=== PATIENT | male | born 1945 | race African-American/Black ===

== ENCOUNTER → 2017-01-16 | Outpatient (CLI) | payer MEDICARE ==
[2014-02-12 16:25] VITALS: BP 125/74
[~2017-01-16] MED LIST: AMLO5TAB2 PO; CALC500T27 PO; CHOL10002 PO; FERR325C PO; INSU100C SQ; MULT-18 PO; MYCO180T PO; MYCO250C PO; PANT40TA3 PO; PRAV20TA2 PO
--- NOTE | 2017-01-16 12:27 | KCIC ---
PROCEDURE Renal ultrasound dated 01/16/2017. HISTORY Chronic kidney disease. TECHNIQUE Routine sonographic imaging performed. COMPARISON None. FINDINGS Both kidneys are echogenic. The right kidney measures 9.9 centimeter in length. Left kidney measures 13.9 centimeter in length. Simple appearing cysts at both kidneys measuring up to 6.8 centimeter on the left and 4.1 centimeter on the right. No solid mass or abnormal shadowing. No hydronephrosis. The gallbladder is distended and there Nuris shadowing stones. No wall thickening or pericholecystic fluid. Prostate gland is enlarged. Urinary bladder is nondistended and not well evaluated. IMPRESSION - No acute sonographic abnormality. - Bilateral renal cysts. - Cholelithiasis. - Prostatomegaly. Electronically signed by: Ti Sanches (Jan 16, 2017 12:25:46)
== END | disposition home or self-care (01) ==
LOC: KCIC US 10:12
PROVIDERS: ATTEND Internal Medicine Nephrology
DX: I12.9 Hypertensive chronic kidney disease with stage 1 through stage 4 chronic kidney disease, or unspecified chronic kidney disease (principal); N18.3 Chronic kidney disease, stage 3 (moderate); N28.1 Cyst of kidney, acquired; K80.20 Calculus of gallbladder without cholecystitis without obstruction; N40.0 Benign prostatic hyperplasia without lower urinary tract symptoms
CPT/HCPCS: 76770

== ENCOUNTER → 2017-03-03 | Outpatient (CLI) | payer MEDICARE ==
[2014-02-12 16:25] VITALS: BP 125/74
[2017-03-03 09:53] LABS: BASO % 0 % (0-3); BILIRUBIN,URINE NEGATIVE (NEG); EOS % 1 % (0-3); GLUCOSE,URINE NEGATIVE (NEG); HEMOGLOBIN 13.7 g/dL (13.0-17.5); LYMPH % 15 % (24-48); MEAN CORPUSCULAR HEMOGLOBIN 31 pg (25-35); MEAN CORPUSCULAR HGB CONC 33 g/dL (31-37); MEAN CORPUSCULAR VOLUME 93 fL (79-100); MONO % 5 % (0-9); NEUT % 79 % (31-73); NITRITE,URINE NEGATIVE (NEG); PH,URINE 5.5; PLATELET COUNT 130 x10^3/uL (140-400); PROTEIN,URINE NEGATIVE (NEG-TRACE); RED BLOOD COUNT 4.41 x10^6/uL (4.30-5.70); RED CELL DISTRIBUTION WIDTH 14.6 % (11.5-14.5); UROBILINOGEN,URINE 0.2 mg/dL (0.2 mg/dL)
[2017-03-03 09:54] LABS: WHITE BLOOD COUNT 6.6 x10^3/uL (4.0-11.0)
[2017-03-03 10:05] LABS: ALBUMIN 4.6 g/dL (3.4-5.0); BACTERIA,URINE 0 /HPF (0-FEW); CALCIUM 9.5 mg/dL (8.5-10.1); CREATININE 1.8 mg/dL (0.7-1.3); GFR 45.5; PHOSPHORUS 3.4 mg/dL (2.6-4.7); POTASSIUM 4.5 mmol/L (3.5-5.1); RBC,URINE 0 /HPF (0-2); SQUAMOUS EPITHELIAL CELL,UR OCC /LPF
[2017-03-03 18:16] LABS: UR PROTEIN RD 19.8 mg/dL (Not Estab.)
[2017-03-04 07:28] LABS: PTH INTACT 33 pg/mL (15-65)
== END | disposition home or self-care (01) ==
LOC: LAB 09:04
PROVIDERS: ATTEND Internal Medicine Nephrology
DX: N18.3 Chronic kidney disease, stage 3 (moderate) (principal)
CPT/HCPCS: 36415; 80069; 81001; 82570; 83970; 84156; 85027

== ENCOUNTER → 2017-04-10 | Outpatient (CLI) | payer MEDICARE ==
[2014-02-12 16:25] VITALS: BP 125/74
[~2017-04-10] MED LIST changes: -CALC500T27 PO; +CALC500T30 PO
[2017-04-10 08:20] LABS: BASO % 0 % (0-3); EOS % 1 % (0-3); HEMATOCRIT 39.5 % (39.0-53.0); HEMOGLOBIN 13.2 g/dL (13.0-17.5); LYMPH # 1.6 x10^3/uL (1.0-4.8); LYMPH % 26 % (24-48); MEAN CORPUSCULAR HEMOGLOBIN 31 pg (25-35); MEAN CORPUSCULAR HGB CONC 34 g/dL (31-37); MEAN CORPUSCULAR VOLUME 92 fL (79-100); MONO % 8 % (0-9); NEUT % 65 % (31-73); PLATELET COUNT 132 x10^3/uL (140-400); RED BLOOD COUNT 4.28 x10^6/uL (4.30-5.70); RED CELL DISTRIBUTION WIDTH 14.7 % (11.5-14.5); WHITE BLOOD COUNT 6.2 x10^3/uL (4.0-11.0)
[2017-04-10 08:47] LABS: CALCIUM 8.9 mg/dL (8.5-10.1); GFR 40.2; MAGNESIUM 1.9 mg/dL (1.8-2.4); POTASSIUM 4.6 mmol/L (3.5-5.1)
== END | disposition home or self-care (01) ==
LOC: LAB 07:47
PROVIDERS: ATTEND Internal Medicine Cardiovascular Disease
DX: E78.5 Hyperlipidemia, unspecified (principal); D89.9 Disorder involving the immune mechanism, unspecified; Z94.1 Heart transplant status
CPT/HCPCS: 80048; 82465; 83735; 84478; 85027

== ENCOUNTER → 2017-09-11 | Outpatient (CLI) | payer MEDICARE ==
[2014-02-12 16:25] VITALS: BP 125/74
[2017-09-11 09:07] LABS: BASO % 1 % (0-3); EOS % 2 % (0-3); HEMATOCRIT 40.7 % (39.0-53.0); HEMOGLOBIN 13.3 g/dL (13.0-17.5); LYMPH # 1.5 x10^3/uL (1.0-4.8); LYMPH % 25 % (24-48); MEAN CORPUSCULAR HEMOGLOBIN 31 pg (25-35); MEAN CORPUSCULAR HGB CONC 33 g/dL (31-37); MEAN CORPUSCULAR VOLUME 94 fL (79-100); MONO % 9 % (0-9); NEUT % 64 % (31-73); PLATELET COUNT 185 x10^3/uL (140-400); RED BLOOD COUNT 4.35 x10^6/uL (4.30-5.70); RED CELL DISTRIBUTION WIDTH 14.3 % (11.5-14.5); WHITE BLOOD COUNT 6.3 x10^3/uL (4.0-11.0)
[2017-09-11 09:23] LABS: CREATININE 1.9 mg/dL (0.7-1.3); GFR 42.6; MAGNESIUM 1.8 mg/dL (1.8-2.4)
== END | disposition home or self-care (01) ==
LOC: LAB 08:46
PROVIDERS: ATTEND Internal Medicine Cardiovascular Disease
DX: Z48.21 Encounter for aftercare following heart transplant (principal); D89.9 Disorder involving the immune mechanism, unspecified; E78.2 Mixed hyperlipidemia
CPT/HCPCS: 36415; 80048; 80197; 82465; 83735; 84478; 85025

== ENCOUNTER → 2017-11-16 | Outpatient (CLI) | payer BC ==
[2017-11-16 09:03] LABS: ADD MAN DIFF? NO
[2017-11-16 09:19] LABS: BASO % 1 % (0-3); EOS # 0.1 x10^3/uL (0.0-0.7); EOS % 2 % (0-3); HEMATOCRIT 39.5 % (39.0-53.0); LYMPH % 22 % (24-48); MEAN CORPUSCULAR HEMOGLOBIN 30 pg (25-35); MEAN CORPUSCULAR HGB CONC 33 g/dL (31-37); MEAN CORPUSCULAR VOLUME 93 fL (79-100); MONO # 0.6 x10^3/uL (0.0-1.1); MONO % 13 % (0-9); NEUT # 2.9 x10^3uL (1.8-7.7); NEUT % 62 % (31-73); PLATELET COUNT 133 x10^3/uL (140-400); RED BLOOD COUNT 4.26 x10^6/uL (4.30-5.70); RED CELL DISTRIBUTION WIDTH 14.3 % (11.5-14.5); WHITE BLOOD COUNT 4.7 x10^3/uL (4.0-11.0)
[2017-11-16 09:27] LABS: ALBUMIN 4.3 g/dL (3.4-5.0); ANION GAP 10 (6-14); BLOOD UREA NITROGEN 24 mg/dL (8-26); CALCIUM 9.2 mg/dL (8.5-10.1); CARBON DIOXIDE 28 mmol/L (21-32); CHLORIDE 102 mmol/L (98-107); GFR 40.2; GLUCOSE 158 mg/dL (70-99); PHOSPHORUS 3.3 mg/dL (2.6-4.7); POTASSIUM 4.2 mmol/L (3.5-5.1); SODIUM 140 mmol/L (136-145)
[2017-11-16 09:52] LABS: BILIRUBIN,URINE NEGATIVE (NEG); CLARITY,URINE CLEAR; COLOR,URINE YELLOW; GLUCOSE,URINE NEGATIVE (NEG); NITRITE,URINE NEGATIVE (NEG); PH,URINE 5.5; PROTEIN,URINE 30 mg/dL (NEG-TRACE); UROBILINOGEN,URINE 0.2 mg/dL (0.2 mg/dL)
[2017-11-16 10:06] LABS: BACTERIA,URINE 0 /HPF (0-FEW); RBC,URINE 0 /HPF (0-2); SQUAMOUS EPITHELIAL CELL,UR FEW /LPF; WBC,URINE 0 /HPF (0-4)
[2017-11-16 19:18] LABS: TOTAL PROTEIN CREATININE RATIO 232 mg/g creat (0-200); UR CREATININE RD 253.3 mg/dL (Not Estab.); UR PROTEIN RD 58.7 mg/dL (Not Estab.)
[2017-11-17 15:26] LABS: CALCIUM PTH 9.6 mg/dL (8.6-10.2); CREATININE PTH 1.86 mg/dL (0.76-1.27); PHOSPHORUS PTH 3.2 mg/dL (2.5-4.5); PTH INTACT 46 pg/mL (15-65); eGFR AFRICAN-AMER 41 (>59); eGFR NON AFRICAN-AMER 36 (>59)
== END | disposition home or self-care (01) ==
LOC: LAB 08:49
DX: N18.3 Chronic kidney disease, stage 3 (moderate) (principal)
CPT/HCPCS: 36415; 80069; 81001; 82570; 83970; 84156; 85025

== ENCOUNTER → 2017-11-22 | Outpatient (CLI) | payer BC ==
[2017-11-22 08:01] LABS: ADD MAN DIFF? NO
[2017-11-22 08:19] LABS: BASO % 0 % (0-3); EOS # 0.1 x10^3/uL (0.0-0.7); EOS % 2 % (0-3); HEMATOCRIT 39.1 % (39.0-53.0); LYMPH # 1.8 x10^3/uL (1.0-4.8); LYMPH % 30 % (24-48); MEAN CORPUSCULAR HEMOGLOBIN 31 pg (25-35); MEAN CORPUSCULAR HGB CONC 33 g/dL (31-37); MEAN CORPUSCULAR VOLUME 93 fL (79-100); MONO # 0.5 x10^3/uL (0.0-1.1); MONO % 8 % (0-9); NEUT # 3.6 x10^3uL (1.8-7.7); NEUT % 60 % (31-73); PLATELET COUNT 173 x10^3/uL (140-400); RED BLOOD COUNT 4.22 x10^6/uL (4.30-5.70)
[2017-11-23 11:55] LABS: PROGRAF LEVEL SEE SEPARATE REPORT
== END | disposition home or self-care (01) ==
LOC: LAB 07:49
DX: Z48.21 Encounter for aftercare following heart transplant (principal)
CPT/HCPCS: 36415; 80197; 85025

== ENCOUNTER → 2017-12-29 | Outpatient (CLI) | payer BC ==
[2017-12-29 08:32] LABS: ANION GAP 10 (6-14); BLOOD UREA NITROGEN 21 mg/dL (8-26); CALCIUM 9.1 mg/dL (8.5-10.1); CARBON DIOXIDE 26 mmol/L (21-32); CHLORIDE 107 mmol/L (98-107); CREATININE 1.9 mg/dL (0.7-1.3); GFR 42.6; GLUCOSE 127 mg/dL (70-99); POTASSIUM 4.2 mmol/L (3.5-5.1); SODIUM 143 mmol/L (136-145)
== END | disposition home or self-care (01) ==
LOC: LAB 08:07
DX: I12.9 Hypertensive chronic kidney disease with stage 1 through stage 4 chronic kidney disease, or unspecified chronic kidney disease (principal); N18.3 Chronic kidney disease, stage 3 (moderate); Z94.1 Heart transplant status
CPT/HCPCS: 36415; 80048

== ENCOUNTER → 2018-02-16 | Outpatient (CLI) | payer BC ==
[2018-02-16 09:24] LABS: GFR 40.2
[2018-02-19 07:01] LABS: PROGRAF LEVEL SEE SEPARATE REPORT
== END | disposition home or self-care (01) ==
LOC: LAB 08:46
DX: Z48.21 Encounter for aftercare following heart transplant (principal)
CPT/HCPCS: 36415; 80197; 82565

== ENCOUNTER → 2018-07-05 | Outpatient (CLI) | payer BC ==
[2014-02-12 16:25] VITALS: BP 125/74
[~2018-07-05] MED LIST changes: -AMLO5TAB2 PO; +AMLO5TAB7 PO
[2018-07-05 09:54] LABS: CREATININE 1.8 mg/dL (0.7-1.3); GFR 45.2
== END | disposition home or self-care (01) ==
LOC: LAB 09:04
PROVIDERS: ATTEND Internal Medicine Cardiovascular Disease
DX: Z48.21 Encounter for aftercare following heart transplant (principal); E11.22 Type 2 diabetes mellitus with diabetic chronic kidney disease; I12.9 Hypertensive chronic kidney disease with stage 1 through stage 4 chronic kidney disease, or unspecified chronic kidney disease; N18.3 Chronic kidney disease, stage 3 (moderate); E78.2 Mixed hyperlipidemia; Z79.4 Long term (current) use of insulin
CPT/HCPCS: 36415; 80197; 82565

== ENCOUNTER → 2018-09-19 | Outpatient (CLI) | payer BC ==
[2014-02-12 16:25] VITALS: BP 125/74
[2018-09-19 09:44] LABS: BASO % 1 % (0-3); EOS # 0.1 x10^3/uL (0.0-0.7); EOS % 3 % (0-3); HEMATOCRIT 39.9 % (39.0-53.0); HEMOGLOBIN 13.3 g/dL (13.0-17.5); LYMPH # 1.3 x10^3/uL (1.0-4.8); LYMPH % 25 % (24-48); MEAN CORPUSCULAR HEMOGLOBIN 32 pg (25-35); MEAN CORPUSCULAR HGB CONC 33 g/dL (31-37); MEAN CORPUSCULAR VOLUME 94 fL (79-100); MONO # 0.5 x10^3/uL (0.0-1.1); MONO % 9 % (0-9); NEUT # 3.4 x10^3uL (1.8-7.7); NEUT % 63 % (31-73); PLATELET COUNT 137 x10^3/uL (140-400); RED BLOOD COUNT 4.22 x10^6/uL (4.30-5.70); RED CELL DISTRIBUTION WIDTH 14.6 % (11.5-14.5); WHITE BLOOD COUNT 5.4 x10^3/uL (4.0-11.0)
[2018-09-19 10:06] LABS: CREATININE 2.1 mg/dL (0.7-1.3); GFR 37.9; MAGNESIUM 1.9 mg/dL (1.8-2.4)
== END | disposition home or self-care (01) ==
LOC: LAB 09:13
PROVIDERS: ATTEND Internal Medicine Cardiovascular Disease
DX: Z48.21 Encounter for aftercare following heart transplant (principal); E78.2 Mixed hyperlipidemia; D89.9 Disorder involving the immune mechanism, unspecified; Z94.1 Heart transplant status; Z79.899 Other long term (current) drug therapy; Z92.241 Personal history of systemic steroid therapy
CPT/HCPCS: 36415; 80048; 82465; 83735; 84478; 85025

== ENCOUNTER → 2019-01-22 | Outpatient (CLI) | payer BC ==
[2014-02-12 16:25] VITALS: BP 125/74
[~2019-01-22] MED LIST changes: +AMLO5TAB10 PO; -AMLO5TAB7 PO
[2019-01-22 11:06] LABS: CREATININE 2.1 mg/dL (0.7-1.3); GFR 37.9
== END | disposition home or self-care (01) ==
LOC: LAB 10:19
PROVIDERS: ATTEND Internal Medicine
DX: Z48.21 Encounter for aftercare following heart transplant (principal)
CPT/HCPCS: 36415; 80197; 82565

== ENCOUNTER → 2019-02-11 | Outpatient (CLI) | payer BC ==
[2014-02-12 16:25] VITALS: BP 125/74
[2019-02-11 10:04] LABS: CALCIUM 9.2 mg/dL (8.5-10.1); GFR 40.1; MAGNESIUM 1.8 mg/dL (1.8-2.4); POTASSIUM 4.3 mmol/L (3.5-5.1)
== END | disposition home or self-care (01) ==
LOC: LAB 09:03
PROVIDERS: ATTEND Internal Medicine Cardiovascular Disease
DX: E87.5 Hyperkalemia (principal)
CPT/HCPCS: 36415; 80048; 83735

== ENCOUNTER → 2019-02-12 | Outpatient (CLI) | payer BC ==
[2014-02-12 16:25] VITALS: BP 125/74
== END | disposition home or self-care (01) ==
LOC: LAB 09:47
PROVIDERS: ATTEND Internal Medicine
DX: Z48.21 Encounter for aftercare following heart transplant (principal)
CPT/HCPCS: 36415; 80197

== ENCOUNTER → 2019-02-25 | Outpatient (CLI) | payer BC ==
[2014-02-12 16:25] VITALS: BP 125/74
[2019-02-25 08:59] LABS: CREATININE 1.8 mg/dL (0.7-1.3); GFR 45.2
== END | disposition home or self-care (01) ==
LOC: LAB 08:17
PROVIDERS: ATTEND Internal Medicine Cardiovascular Disease
DX: Z48.21 Encounter for aftercare following heart transplant (principal)
CPT/HCPCS: 36415; 80197; 82565

== ENCOUNTER → 2019-03-25 | Outpatient (CLI) | payer BC ==
[2014-02-12 16:25] VITALS: BP 125/74
[2019-03-25 09:43] LABS: BASO % 0 % (0-3); EOS # 0.2 x10^3/uL (0.0-0.7); EOS % 3 % (0-3); HEMATOCRIT 42.4 % (39.0-53.0); HEMOGLOBIN 14.3 g/dL (13.0-17.5); LYMPH # 1.6 x10^3/uL (1.0-4.8); LYMPH % 27 % (24-48); MEAN CORPUSCULAR HEMOGLOBIN 32 pg (25-35); MEAN CORPUSCULAR HGB CONC 34 g/dL (31-37); MEAN CORPUSCULAR VOLUME 95 fL (79-100); MONO # 0.4 x10^3/uL (0.0-1.1); MONO % 7 % (0-9); NEUT # 3.8 x10^3uL (1.8-7.7); NEUT % 63 % (31-73); PLATELET COUNT 141 x10^3/uL (140-400); RED BLOOD COUNT 4.47 x10^6/uL (4.30-5.70); RED CELL DISTRIBUTION WIDTH 14.1 % (11.5-14.5); WHITE BLOOD COUNT 6.1 x10^3/uL (4.0-11.0)
[2019-03-25 10:18] LABS: ALBUMIN 4.2 g/dL (3.4-5.0); ALBUMIN/GLOBULIN RATIO 1.1 (1.0-1.7); CALCIUM 9.5 mg/dL (8.5-10.1); CREATININE 1.8 mg/dL (0.7-1.3); GFR 45.1; MAGNESIUM 1.8 mg/dL (1.8-2.4); POTASSIUM 4.5 mmol/L (3.5-5.1); TOTAL BILIRUBIN 0.7 mg/dL (0.2-1.0)
== END | disposition home or self-care (01) ==
LOC: LAB 09:06
PROVIDERS: ATTEND Internal Medicine Cardiovascular Disease
DX: Z48.21 Encounter for aftercare following heart transplant (principal); E78.2 Mixed hyperlipidemia; D89.9 Disorder involving the immune mechanism, unspecified; Z79.899 Other long term (current) drug therapy; Z94.1 Heart transplant status; Z92.241 Personal history of systemic steroid therapy
CPT/HCPCS: 36415; 80053; 80197; 83735; 85025

== ENCOUNTER → 2019-04-15 | Outpatient (CLI) | payer BC ==
[2014-02-12 16:25] VITALS: BP 125/74
[~2019-04-15] MED LIST changes: -PANT40TA3 PO; +PANT40TA77 PO
[2019-04-15 08:39] LABS: CALCIUM 9.1 mg/dL (8.5-10.1); CREATININE 1.9 mg/dL (0.7-1.3); GFR 42.4; POTASSIUM 4.3 mmol/L (3.5-5.1)
== END | disposition home or self-care (01) ==
LOC: LAB 08:04
PROVIDERS: ATTEND Internal Medicine
DX: E11.9 Type 2 diabetes mellitus without complications (principal); Z94.1 Heart transplant status
CPT/HCPCS: 36415; 80048

== ENCOUNTER → 2019-07-10 | Outpatient (CLI) | payer BC ==
[2014-02-12 16:25] VITALS: BP 125/74
== END | disposition home or self-care (01) ==
LOC: LAB 10:52
PROVIDERS: ATTEND Urology
DX: C61 Malignant neoplasm of prostate (principal)
CPT/HCPCS: 36415; G0103

== ENCOUNTER → 2019-09-23 | Outpatient (CLI) | payer BC ==
[2014-02-12 16:25] VITALS: BP 125/74
[2019-09-23 09:48] LABS: BASO % 0 % (0-3); EOS # 0.2 x10^3/uL (0.0-0.7); EOS % 2 % (0-3); HEMATOCRIT 34.2 % (39.0-53.0); HEMOGLOBIN 11.4 g/dL (13.0-17.5); LYMPH # 1.5 x10^3/uL (1.0-4.8); LYMPH % 19 % (24-48); MEAN CORPUSCULAR HEMOGLOBIN 32 pg (25-35); MEAN CORPUSCULAR HGB CONC 33 g/dL (31-37); MEAN CORPUSCULAR VOLUME 96 fL (79-100); MONO # 0.6 x10^3/uL (0.0-1.1); MONO % 7 % (0-9); NEUT # 5.6 x10^3/uL (1.8-7.7); NEUT % 71 % (31-73); PLATELET COUNT 164 x10^3/uL (140-400); RED BLOOD COUNT 3.58 x10^6/uL (4.30-5.70); RED CELL DISTRIBUTION WIDTH 14.1 % (11.5-14.5); WHITE BLOOD COUNT 7.9 x10^3/uL (4.0-11.0)
[2019-09-23 10:13] LABS: ALBUMIN 3.8 g/dL (3.4-5.0); ALBUMIN/GLOBULIN RATIO 0.9 (1.0-1.7); CALCIUM 9.1 mg/dL (8.5-10.1); CREATININE 1.9 mg/dL (0.7-1.3); GFR 42.4; MAGNESIUM 1.7 mg/dL (1.8-2.4); POTASSIUM 4.3 mmol/L (3.5-5.1); TOTAL BILIRUBIN 0.4 mg/dL (0.2-1.0)
[2019-09-24 00:07] LABS: HEMOGLOBIN A1C 7.2 % (4.8-5.6)
== END | disposition home or self-care (01) ==
LOC: LAB 09:09
PROVIDERS: ATTEND Internal Medicine Cardiovascular Disease
DX: Z48.21 Encounter for aftercare following heart transplant (principal); D89.9 Disorder involving the immune mechanism, unspecified; E11.9 Type 2 diabetes mellitus without complications; Z79.899 Other long term (current) drug therapy
CPT/HCPCS: 36415; 80053; 80197; 83036; 83735; 85025

== ENCOUNTER → 2020-07-09 | Outpatient (CLI) | payer BC ==
[2014-02-12 16:25] VITALS: BP 125/74
[2020-07-09 16:44] LABS: BASO % 0 % (0-3); EOS # 0.1 x10^3/uL (0.0-0.7); EOS % 2 % (0-3); HEMATOCRIT 35.8 % (39.0-53.0); HEMOGLOBIN 12.3 g/dL (13.0-17.5); LYMPH % 18 % (24-48); MEAN CORPUSCULAR HEMOGLOBIN 33 pg (25-35); MEAN CORPUSCULAR HGB CONC 34 g/dL (31-37); MEAN CORPUSCULAR VOLUME 97 fL (79-100); MONO # 0.4 x10^3/uL (0.0-1.1); MONO % 6 % (0-9); NEUT # 4.4 x10^3/uL (1.8-7.7); NEUT % 74 % (31-73); PLATELET COUNT 138 x10^3/uL (140-400); RED BLOOD COUNT 3.71 x10^6/uL (4.30-5.70); RED CELL DISTRIBUTION WIDTH 13.7 % (11.5-14.5)
== END | disposition home or self-care (01) ==
LOC: LAB 16:05
PROVIDERS: ATTEND Internal Medicine Cardiovascular Disease
DX: Z48.21 Encounter for aftercare following heart transplant (principal); E78.2 Mixed hyperlipidemia; D89.9 Disorder involving the immune mechanism, unspecified; Z79.899 Other long term (current) drug therapy
CPT/HCPCS: 36415; 80197; 85025

== ENCOUNTER → 2020-10-05 | Outpatient (CLI) | payer BC ==
[2014-02-12 16:25] VITALS: BP 125/74
[~2020-10-05] MED LIST changes: +AMLO-186 PO; -AMLO5TAB10 PO
[2020-10-05 10:32] LABS: FREE T4 0.79 ng/dL (0.76-1.46)
[2020-10-06 15:22] LABS: THYROID STIM HORMONE (TSH) 2.691 uIU/mL (0.358-3.74)
== END ==
LOC: LAB 08:37
PROVIDERS: ATTEND Internal Medicine Cardiovascular Disease
DX: E07.9 Disorder of thyroid, unspecified (principal); Z94.1 Heart transplant status
CPT/HCPCS: 36415; 82550; 82728; 83540; 83735; 84439; 84443

== ENCOUNTER → 2020-10-05 | Outpatient (CLI) | payer BC ==
[2014-02-12 16:25] VITALS: BP 125/74
[2020-10-05 10:35] LABS: FREE T4 0.79 ng/dL (0.76-1.46); THYROID STIM HORMONE (TSH) 2.668 uIU/mL (0.358-3.74)
== END ==
LOC: LAB 08:52
DX: E04.2 Nontoxic multinodular goiter (principal); E07.9 Disorder of thyroid, unspecified
CPT/HCPCS: 36415; 84439; 84443

== ENCOUNTER → 2021-02-17 | Outpatient (CLI) | payer BC ==
[2014-02-12 16:25] VITALS: BP 125/74
== END ==
LOC: LAB 08:43
DX: Z12.5 Encounter for screening for malignant neoplasm of prostate (principal); R97.20 Elevated prostate specific antigen [PSA]
CPT/HCPCS: 36415; G0103

== ENCOUNTER → 2021-04-14 | Outpatient (CLI) | payer BC ==
[2014-02-12 16:25] VITALS: BP 125/74
[2021-04-14 09:16] LABS: BASO % 0 % (0-3); EOS # 0.3 x10^3/uL (0.0-0.7); EOS % 5 % (0-3); HEMATOCRIT 37.3 % (39.0-53.0); HEMOGLOBIN 12.6 g/dL (13.0-17.5); LYMPH # 1.3 x10^3/uL (1.0-4.8); LYMPH % 26 % (24-48); MEAN CORPUSCULAR HEMOGLOBIN 33 pg (25-35); MEAN CORPUSCULAR HGB CONC 34 g/dL (31-37); MEAN CORPUSCULAR VOLUME 96 fL (79-100); MONO # 0.4 x10^3/uL (0.0-1.1); MONO % 9 % (0-9); NEUT # 3.1 x10^3/uL (1.8-7.7); NEUT % 60 % (31-73); PLATELET COUNT 133 x10^3/uL (140-400); RED BLOOD COUNT 3.86 x10^6/uL (4.30-5.70); RED CELL DISTRIBUTION WIDTH 13.9 % (11.5-14.5); WHITE BLOOD COUNT 5.1 x10^3/uL (4.0-11.0)
[2021-04-14 09:17] LABS: ALBUMIN/GLOBULIN RATIO 1.3 (1.0-1.7); CREATININE 1.9 mg/dL (0.7-1.3); GFR 42.1; POTASSIUM 4.5 mmol/L (3.5-5.1); TOTAL BILIRUBIN 0.5 mg/dL (0.2-1.0); TOTAL PROTEIN 7.2 g/dL (6.4-8.2)
== END ==
LOC: LAB 07:20
PROVIDERS: ATTEND Internal Medicine Advanced Heart Failure and Transplant Cardiology
DX: Z48.21 Encounter for aftercare following heart transplant (principal); D84.9 Immunodeficiency, unspecified; Z79.899 Other long term (current) drug therapy
CPT/HCPCS: 36415; 80053; 80197; 83735; 85025

== ENCOUNTER → 2021-10-13 | Outpatient (CLI) | payer BC ==
[2014-02-12 16:25] VITALS: BP 125/74
[2021-10-13 09:47] LABS: BASO % 0 % (0-3); EOS # 0.5 x10^3/uL (0.0-0.7); EOS % 8 % (0-3); HEMATOCRIT 38.9 % (39.0-53.0); HEMOGLOBIN 13.6 g/dL (13.0-17.5); LYMPH # 1.6 x10^3/uL (1.0-4.8); LYMPH % 28 % (24-48); MEAN CORPUSCULAR HEMOGLOBIN 33 pg (25-35); MEAN CORPUSCULAR HGB CONC 35 g/dL (31-37); MEAN CORPUSCULAR VOLUME 94 fL (79-100); MONO # 0.6 x10^3/uL (0.0-1.1); MONO % 10 % (0-9); NEUT % 53 % (31-73); PLATELET COUNT 151 x10^3/uL (140-400); RED BLOOD COUNT 4.14 x10^6/uL (4.30-5.70); RED CELL DISTRIBUTION WIDTH 13.9 % (11.5-14.5); WHITE BLOOD COUNT 5.6 x10^3/uL (4.0-11.0)
[2021-10-13 10:00] LABS: ALBUMIN 3.6 g/dL (3.4-5.0); ALBUMIN/GLOBULIN RATIO 0.9 (1.0-1.7); CALCIUM 8.5 mg/dL (8.5-10.1); CREATININE 1.9 mg/dL (0.7-1.3); GFR 42.1; MAGNESIUM 1.8 mg/dL (1.8-2.4); POTASSIUM 4.8 mmol/L (3.5-5.1); TOTAL BILIRUBIN 0.4 mg/dL (0.2-1.0); TOTAL PROTEIN 7.5 g/dL (6.4-8.2)
== END ==
LOC: LAB 09:07
DX: Z48.21 Encounter for aftercare following heart transplant (principal); I12.9 Hypertensive chronic kidney disease with stage 1 through stage 4 chronic kidney disease, or unspecified chronic kidney disease; N18.30 Chronic kidney disease, stage 3 unspecified; D84.9 Immunodeficiency, unspecified; Z79.899 Other long term (current) drug therapy
CPT/HCPCS: 36415; 80053; 80197; 83735; 85025

== ENCOUNTER → 2021-12-23 | Outpatient (CLI) | payer BC ==
[2014-02-12 16:25] VITALS: BP 125/74
[2021-12-23 08:50] LABS: CALCIUM 9.1 mg/dL (8.5-10.1); CREATININE 2.1 mg/dL (0.7-1.3); GFR 37.5; POTASSIUM 4.7 mmol/L (3.5-5.1)
== END ==
LOC: LAB 08:13
PROVIDERS: ATTEND Internal Medicine Cardiovascular Disease
DX: Z48.21 Encounter for aftercare following heart transplant (principal)
CPT/HCPCS: 36415; 80048